=== PATIENT | male | born 2000 ===

== ENCOUNTER 2018-11-25 17:07 | Emergency (ER) | payer OTHER, SELFPAY ==
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
== END 2018-11-25 18:40 | disposition home or self-care (01) ==
LOC: ERS 17:07
DX: S76.012A Strain of muscle, fascia and tendon of left hip, initial encounter (principal); J45.909 Unspecified asthma, uncomplicated; F32.9 Major depressive disorder, single episode, unspecified; F17.290 Nicotine dependence, other tobacco product, uncomplicated; V43.62XA Car passenger injured in collision with other type car in traffic accident, initial encounter

== ENCOUNTER 2019-01-26 11:07 | Emergency (ER) | payer BC ==
[2019-01-26] MEDS ORDERED: Ibuprofen 800 MG TAB ONE (11:26)
== END 2019-01-26 11:33 | disposition home or self-care (01) ==
LOC: SCSER 11:07
DX: M54.5 Low back pain (principal); J45.909 Unspecified asthma, uncomplicated; F32.9 Major depressive disorder, single episode, unspecified; F17.200 Nicotine dependence, unspecified, uncomplicated
CPT/HCPCS: 99283